=== PATIENT | male | born 1985 | race Two or more races ===

== ENCOUNTER 2023-06-23 09:46 | Emergency (ER) | payer OTHER, MEDICAID ==
[~2023-06-23] VITALS: Ht 167.6 cm; Wt 145.0 kg
[2023-06-23 10:18] VITALS: BP 145/76; PULSE 82; RESP 14; TEMP 98.3; O2SAT 98
[2023-06-23] MEDS ORDERED: IBUP-1455 PO ×2 (11:40)
[2023-06-23] MEDS ORDERED: ACET500T58 PO ×2 (11:40)
[2023-06-24] MEDS ORDERED: ACET500T58 PO (15:59)
[2023-06-24] MEDS ORDERED: IBUP-1455 PO (15:59)
== END 2023-06-23 11:43 | disposition home or self-care (01) ==
LOC: ER 09:46 → EDBD 09:46 → ER 11:43
DX: S93.401A Sprain of unspecified ligament of right ankle, initial encounter (principal); S16.1XXA Strain of muscle, fascia and tendon at neck level, initial encounter; S80.11XA Contusion of right lower leg, initial encounter; S09.90XA Unspecified injury of head, initial encounter; V43.02XA Car driver injured in collision with other type car in nontraffic accident, initial encounter; Y93.89 Activity, other specified; Y92.481 Parking lot as the place of occurrence of the external cause; Y99.9 Unspecified external cause status
CPT/HCPCS: 70450; 72125; 73590; 73610